=== PATIENT | female | born 1995 ===

== ENCOUNTER 2018-02-28 22:54 | Emergency (ER) | payer MEDICAID ==
[2018-02-28 23:05] VITALS: RESP 18; O2SAT 100
--- NOTE | 2018-03-01 00:13 | ED PDOC ---
HPI: Wound Care - HPI Time Seen by Provider: 03/01/18 00:03 Chief Complaint (Nursing): Abnormal Skin Integrity Chief Complaint (Provider): right hand puncture wound History Per: Patient History Of Present Illness: 23 y/o female presents for evaluation of puncture wound to right hand sustained prior to arrival. Patient states she broke a wine glass and threw it in the garbage and while tying the garbage a piece of glass poked through the bag and into her skin. Denies numbness/weakness right upper extremity, limitation of movement. Tetanus up to date. Past Medical History Reviewed: Historical Data, Nursing Documentation, Vital Signs Vital Signs: Last Vital Signs Temp 98.3 F 02/28/18 23:03 Pulse 74 02/28/18 23:03 Resp 18 02/28/18 23:03 BP 117/78 02/28/18 23:03 Pulse Ox 100 02/28/18 23:03 - Medical History PMH: No Chronic Diseases - Surgical History Surgical History: No Surg Hx - Family History Family History: States: No Known Family Hx - Home Medications Home Medications: Ambulatory Orders Medication Instructions Recorded Bacitracin Ointment [Bacitracin] 1 applic TOP BID #1 tube 03/01/18 - Allergies Allergies/Adverse Reactions: Allergies Allergy/AdvReac Type Severity Reaction Status Date / Time FISH Allergy RASH Verified 02/28/18 23:03 Review of Systems ROS Statement: Except As Marked, All Systems Reviewed And Found Negative Musculoskeletal: Positive for: Hand Pain (right hand puncture wound) Physical Exam - Reviewed Nursing Documentation Reviewed: Yes Vital Signs Reviewed: Yes - Physical Exam Appears: Positive for: Well, Non-toxic, No Acute Distress Pulses-Radial (L): 2+ Pulses-Radial (R): 2+ Extremity: Positive for: Normal ROM, Other (superficial puncture wound noted base of 5th digit, lateral/dorsal aspect. No visible FB. + surrounding ecchymosis to 4th digit. FROM. Distal NV/motor intact. ) Neurologic/Psych: Positive for: Alert, Oriented (x3) - ECG O2 Sat by Pulse Oximetry: 100 - Other Rad right hand xray X-Ray: Viewed By Pa X-Ray Interpretation: no acute findings - Progress ED Course And Treament: -xray right hand -wound care Puncture wound irrigated with 250mL NS, bacitracin and bandage applied Patient educated on findings, discharged with rx Bacitracin Advised follow up PMD within 2-3 days Ice affected area Return precautions given Disposition - Clinical Impression Clinical Impression: Puncture wound of right hand - Patient ED Disposition Is Patient to be Admitted: No Counseled Patient/Family Regarding: Studies Performed, Diagnosis, Need For Followup - Disposition Disposition: Routine/Home Disposition Time: 01:44 Condition: IMPROVED Prescriptions: Bacitracin Ointment [Bacitracin] 1 applic TOP BID #1 tube Instructions: Wound Care Forms: [facility] (N[place]ian)
[2018-03-01 03:30] VITALS: BP 125/81; PULSE 83; TEMP 98
--- NOTE | 2018-03-01 12:47 | RAD ---
PROCEDURE: Right Hand Radiographs. HISTORY: punture wound base 4th digit COMPARISON: None. FINDINGS: BONES: Normal. No fracture. JOINTS: Normal. No osteoarthritic changes. SOFT TISSUES: No radiopaque foreign body identified. OTHER FINDINGS: None. IMPRESSION: Normal right hand radiographs.
== END 2018-03-01 02:50 | disposition home or self-care (01) ==
LOC: H.ER 22:54
DX: S61.431A Puncture wound without foreign body of right hand, initial encounter (principal); W25.XXXA Contact with sharp glass, initial encounter; Y92.89 Other specified places as the place of occurrence of the external cause